=== PATIENT | male | born 1990 | race Caucasian/White ===

== ENCOUNTER 2023-03-09 09:28 | Outpatient (OUT) | payer BC, SELFPAY ==
[2023-03-09 10:21] LABS: Basophils Absolute Auto 0.1 10^3/uL (0.0-0.1); Basophils Percent Auto 0.9 % (0.2-2.0); Eosinophils Absolute Auto 0.3 10^3/uL (0.0-0.7); Eosinophils Percent Auto 5.1 % (0.9-7.0); Hematocrit 45.5 % (42.0-54.0); Hemoglobin 14.6 g/dL (14.0-18.0); Immature Granulocytes Abs Auto 0.02 10^3/uL (0.00-0.03); Immature Granulocytes Pct Auto 0.3 % (0.0-0.5); Lymphocytes Percent Auto 17.5 % (20.5-60.0); Mean Corpuscular HGB Conc 32.1 g/dL (29.9-35.2); Mean Corpuscular Hemoglobin 28.6 pg (25.9-34.0); Mean Platelet Volume 11.5 fL (9.5-13.5); Monocytes Absolute Auto 0.6 10^3/uL (0.3-0.8); Monocytes Percent Auto 9.6 % (1.7-12.0); Neutrophils Absolute Auto 3.9 10^3/uL (1.4-6.5); Neutrophils Percent Auto 66.6 % (43.0-75.0); Platelet Count 156 10^3/uL (150-450); Red Blood Count 5.11 10^6/uL (4.70-6.10); Red Cell Distribution Width 13.8 % (11.0-15.0); White Blood Count 5.8 10^3/uL (4.0-11.0)
[2023-03-09 10:50] LABS: Free T4 1.18 ng/dL (0.76-1.46)
[2023-03-09 12:02] LABS: Alanine Aminotransferase 25 U/L (16-63); Albumin Globulin Ratio 1.2; Albumin Level 4.2 g/dL (3.4-5.0); Alkaline Phosphatase 73 U/L (46-116); Anion Gap 8.6; Aspartate Amino Transferase 19 U/L (15-37); BUN Creatinine Ratio 14.2; Bilirubin Total 0.6 mg/dL (0.2-1.0); Calcium 9.1 mg/dL (8.5-10.1); Carbon Dioxide 27.1 mmol/L (21.0-32.0); Chloride 107 mmol/L (98-107); Chol HDL Ratio 2.6; Cholesterol 118 mg/dL (<=200); Estimated GFR (African America >60 (>=60); Estimated GFR (Non-African Ame >60 (>=60); Globulin 3.4 g/dL; Glucose 107 mg/dL (74-106); HDL Cholesterol 45 mg/dL (40-60); LDL Cholesterol Calculated 61.4 mg/dL; Potassium 3.7 mmol/L (3.5-5.1); Sodium 139 mmol/L (136-145); Thyroid Stimulating Hormone 2.075 uIU/mL (0.358-3.740); Total Protein 7.6 g/dL (6.4-8.2); Triglycerides 58 mg/dL (<=150); VLDL CHOLESTEROL 11.6 mg/dL
== END 2023-03-09 09:29 | disposition home or self-care (01) ==
LOC: LAB 09:35
DX: Z00.00 Encounter for general adult medical examination without abnormal findings (principal); E03.9 Hypothyroidism, unspecified; E10.9 Type 1 diabetes mellitus without complications
CPT/HCPCS: 36415; 80053; 80061; 84439; 84443; 85025

== ENCOUNTER 2024-08-16 07:14 | Outpatient (OUT) | payer BC, SELFPAY ==
[2024-08-16 07:54] LABS: Basophils Absolute Auto 0.1 10^3/uL (0.0-0.1); Basophils Percent Auto 0.8 % (0.2-2.0); Eosinophils Absolute Auto 0.2 10^3/uL (0.0-0.7); Eosinophils Percent Auto 3.2 % (0.9-7.0); Hematocrit 48.2 % (42.0-54.0); Hemoglobin 15.4 g/dL (14.0-18.0); Immature Granulocytes Abs Auto 0.02 10^3/uL (0.00-0.03); Immature Granulocytes Pct Auto 0.3 % (0.0-0.5); Lymphocytes Absolute Auto 1.1 10^3/uL (1.2-3.8); Lymphocytes Percent Auto 16.7 % (20.5-60.0); Mean Corpuscular Hemoglobin 28.9 pg (25.9-34.0); Mean Corpuscular Volume 90.4 fL (80.0-94.0); Mean Platelet Volume 11.6 fL (9.5-13.5); Monocytes Absolute Auto 0.5 10^3/uL (0.3-0.8); Monocytes Percent Auto 7.4 % (1.7-12.0); Neutrophils Absolute Auto 4.8 10^3/uL (1.4-6.5); Neutrophils Percent Auto 71.6 % (43.0-75.0); Platelet Count 168 10^3/uL (150-450); Red Blood Count 5.33 10^6/uL (4.70-6.10); Red Cell Distribution Width 13.7 % (11.0-15.0); White Blood Count 6.6 10^3/uL (4.0-11.0)
[2024-08-16 10:32] LABS: Alanine Aminotransferase 35 U/L (16-63); Albumin Globulin Ratio 1.2; Albumin Level 4.2 g/dL (3.4-5.0); Alkaline Phosphatase 72 U/L (46-116); Anion Gap 13.6; Aspartate Amino Transferase 19 U/L (15-37); BUN Creatinine Ratio 12.1; Bilirubin Total 0.8 mg/dL (0.2-1.0); Calcium 9.1 mg/dL (8.5-10.1); Carbon Dioxide 30.1 mmol/L (21.0-32.0); Chloride 105 mmol/L (98-107); Chol HDL Ratio 2.9; Cholesterol 149 mg/dL (<=200); Estimated GFR (African America >60 (>=60 mL/min/1.73m^2); Estimated GFR (Non-African Ame >60 (>=60 mL/min/1.73m^2); Globulin 3.4 g/dL; Glucose 139 mg/dL (74-106); HDL Cholesterol 52 mg/dL (40-60); Potassium 3.7 mmol/L (3.5-5.1); Sodium 145 mmol/L (136-145); TSH W/ REFLEX FT4 4.211 uIU/mL (0.358-3.740); Total Protein 7.6 g/dL (6.4-8.2); Triglycerides 65 mg/dL (<=150)
[2024-08-16 11:39] LABS: Estimated Average Glucose 140 mg/dL; Glycohemoglobin A1C 6.5 % (4.5-6.2)
== END 2024-08-16 07:15 | disposition home or self-care (01) ==
LOC: LAB 07:22
DX: E10.9 Type 1 diabetes mellitus without complications (principal)
CPT/HCPCS: 36415; 80053; 80061; 83036; 84439; 84443; 85025

== ENCOUNTER 2024-10-05 14:54 | Outpatient (OUT) | payer BC, SELFPAY ==
--- OUTSIDE RECORDS SUMMARY | 2024-10-05 15:03 | XMS_ITS | CCD ---
Author Organization [facility] [place] Care Team Providers Care Housing Development Specialist Name Role Phone Danelle Peck Primary Care Physician Addy Fowler Unavailable Unavailable MIRELES, DIPAKKUMAR P Referring Unavailable MIRELES, DIPAKKUMAR P Primary Care Unavailable MIRELES, DIPAKKUMAR P Referring Unavailable MIRELES, DIPAKKUMAR P Primary Care Unavailable MIRELES, DIPAKKUMAR P Referring Unavailable MIRELES, DIPAKKUMAR P Primary Care Unavailable MIRELES, DIPAKKUMAR P Referring Unavailable MIRELES, DIPAKKUMAR P Primary Care Unavailable MIRELES, DIPAKKUMAR P Referring Unavailable MIRELES, DIPAKKUMAR P Primary Care Unavailable MIRELES, DIPAKKUMAR P Referring Unavailable MIRELES, DIPAKKUMAR P Primary Care Unavailable MIRELES, DIPAKKUMAR P Referring Unavailable MIRELES, DIPAKKUMAR P Primary Care Unavailable MIRELES, DIPAKKUMAR P Primary Care Unavailable Jennifer Williamson Unavailable MISC, DR BURCH Admitting Unavailable MISC, DR BURCH Attending Unavailable MISC, DR BURCH Primary Care Unavailable MISC, DR BURCH Consulting Unavailable Eva Morataya Unavailable Darshana Rojas Unavailable Rafia [facility] jacqueline Mcfarlane Jr, MD, Orestes Sargent Attending Vickey Morataya DO, Eva Mitzy Primary Care U jacqueline Mcfarlane Jr, MD, Orestes Sargent Attending Vickey Mcfarlane Jr, MD, Orestes Sargent Consulting Vickey Morataya DO, [facility] jacqueline Mcfarlane Jr, MD, Orestes Sargent Attending Vickey Marcos MD, Ranjana Tee Attending Unavailable [facility] navclaraable Rafia [facility] Andrea Torres DO Attending Unavailable Allergies Allergy Classification Reported Allergen(s) Allergy Type Date of Onset Reaction(s) Facility (1 source) Codeine; Translations: [codeine sulfate] Drug Allergy [facility] [employer] [facility] (1 source) Penicillins Allergy to substance (disorder) [facility] (1 source) Sulfonamides (Antibiotic) Allergy to substance (disorder) [facility] (13 sources) Codeine; Translations: [codeine] Drug Allergy 04-02-20 24 anaphylaxis [facility] (12 sources) Penicillin G Drug Allergy 04-02-20 rash [facility] (9 sources) Pseudoephedrine Drug Allergy Unknown [facility] Other (1 source) sulfaSALAzine Drug Allergy rash [facility] Other (8 sources) Shellfish Drug allergy Unknown [facility] Other (8 sources) Substance with sulfonamide structure and antibacterial mechanism of action (substance) Drug allergy rash [facility] Other (3 sources) Pseudoephedrine Drug Allergy 04-02-20 Unknown Reaction [facility] (3 sources) Shellfish Allergy to substance 04-02-20 Unknown Reaction [facility] (3 sources) Sulfonamides (Antibiotic) Allergy to substance 04-02-20 rash [facility] (1 source) Penicillin; Translations: [penicillin] Drug Allergy [facility] (1 source) Sulfonamides (Antibiotic); Translations: [sulfa drugs] Propensity to adverse reactions to drug (disorder) [facility] (1 source) iodine containing compounds; Translations: [iodine containing compounds] Propensity to adverse reactions to drug (disorder) [facility] Medications Current Medications Medication Drug Class(es) Dates Sig (Normalized) Sig (Original) azithromycin 250 mg oral tablet (2 sources) Macrolide Antimicrobial Start: 07-25-2023 Azithromycin 250 MG 2 tablet on the first day, then 1 tablet daily for 4 days Orally Once a day for 5 day(s) Jul, Active Start: 03-03-2022 Azithromycin 2 50 MG 2 tablet on the first day, then 1 tablet daily for 4 days Orally Once a day for 5 day(s) Feb, Active cefdinir 300 mg oral capsule (2 sources) Cephalosporin Antibacterial Start: 11-23-2022 take 1 capsule by mouth every twelve hours Cefdinir 300 MG 1 capsule Orally BID for 10 days Nov, Active hydrocortisone 10 mg/ml / neomycin 3.5 mg/ml / polymyxin b [id number] unt/ml otic suspension (1 source) Aminoglycoside Antibacterial, Polymyxin-class Antibacterial, Corticosteroid Start: 03-03-2022 Neomycin-Polym yxin-HC [id number] 3 drops left ear Three times a day for 7 days Feb, Active insulin isophane / insulin, regular, human (1 source) Insulin NovoLIN N Active Insulin Lispro (11 sources) Insulin Analog Start: 04-02-2024 Insulin Lispro Active SUBCUT As Directed April 02, 2024 12:00am FreeTextSig: as directed Injection; Note: Source Status: Taking; Provider: Teri Rodriguez ( ) Insulin Lispro 1 00 UNIT/ML as directed Injection Active levothyroxine sodium 0.125 mg oral tablet (16 sources) l-Thyroxine Start: 04-02-2024 End: 04-02-2024 take 2 tablets by mouth once daily in the morning Levothyroxine Active 250 MCG PO Daily April 02, 2024 3:32pm FreeTextSi tablet in the morning on an empty stomach Orally Once a day; Note: Source Status: Taking; Provider: Teri Rodriguez ( ) take 2 tablets by mo uth once daily in the morning Levothyroxine Sodium 125 MCG 2 tablet in the morning on an empty stomach Orally Once a day Active take 1 tablet by rosales th once daily in the morning Levothyroxine Sodium 125 MCG 1 tablet in the morning on an empty stomach Orally Once a day Active take 1 tablet by rosales th once daily in the morning Levothroid 175 MCG 1 tablet on an empty stomach in the morning Orally Once a day for 30 day(s) Active take 1 tablet by mouth once deyanira y Synthroid 200 mcg oral tablet take 1 tablet (200 mcg) by oral route once daily with a 50 mcg tablet Multivitamin preparation (3 sources) Start: 04-02-2024 take 1 tablet by mouth once daily Multivitamin Active 1 TAB PO Daily April 02, 2024 12:00am naproxen 500 mg oral tablet (2 sources) Nonsteroidal Anti-inflammatory Drug Start: 06-07-2024 take 500 mg by mouth twice daily Naproxen Active 500 MG PO Twice daily June 07, 2024 12:00am ofloxacin 3 mg/ml ophthalmic solution (5 sources) Quinolone Antimicrobial Start: 12-09-2022 Start: 12-09-2022 Ofloxacin 0.3 % 10 drops into affected ear Otic Once a day for 7 days Dec, Not-Taking Completed/Discontinued Medications Medication Drug Class(es) Dates Sig (Normalized) Sig (Original) cephalexin 500 mg oral capsule (2 sources) Cephalosporin Antibacterial Start: 07-07-2023 take 1 capsule by mouth every twelve hours Cephalexin 500 MG 1 capsule Orally twice a day for 10 Jul, Not-Taking ciprofloxacin 2 mg/ml otic solution (5 sources) Quinolone Antimicrobial Start: 12-09-2022 Ciprofloxacin HCl 0.2 % 0.25 mL into affected ear Otic every 12 hrs for 7 days Dec, Not-Taking doxycycline hyclate 100 mg oral tablet (3 sources) Tetracycline-class Drug Start: 02-13-2023 take 1 tablet by mouth every twelve hours Doxycycline Hyclate 100 MG 1 tablet Orally Twice a day for 10 day(s) Feb, Not-Taking fluticasone propionate 0.5 mg/ml topical cream (1 source) Corticosteroid Start: 02-01-2019 fluticasone propionate 0.05 % topical cream 02/01/2019 apply QD for 10 days to affected areas, then weekends only prn Dispense 60 grams Start: 02-01-2019 fluticasone pr opionate 0.05 % topical cream 02/01/2019 apply QD for 10 days to affected areas, then weekends only prn Dispense 60 grams Humalog U-100 Insulin subcut aneous (1 source) Humalog U-100 In sulin subcutaneous per pump Hydrocortison topical ointme nt (3 sources) Hydrocortison to pical ointment Not-Taking Hydrocortison to pical ointment Active ketoconazole 20 mg/ml medicated shampoo (1 source) Azole Antifungal Start: 02-01-2019 ketoconazole 2 % topical shampoo 02/01/2019 apply to the affected area(s), lather, leave in place for 5 minutes, and then rinse off with water by topical route qod Start: 02-01-2019 ketoconazole 2 % topical shampoo 02/01/2019 apply to the affected area(s), lather, leave in place for 5 minutes, and then rinse off with water by topical route qod predniSONE 20 mg oral tablet (2 sources) Start: 07-07-2023 take 1 tablet by mouth every twelve hours prednisone 20 MG 1 tablet Orally BID for 5 Jul, Not-Taking Problems Active Problems Problem Classification Problem Date Documented Date Episodic/Chronic Allergic reactions (1 source) Contact dermatitis and other eczema, unspecified cause Episodic Diabetes mellitus with complications (1 source) Diabetes with renal manifestations, type I [juvenile type], not stated as uncontrolled Chronic Diabetes mellitus without complication (18 sources) Type 1 diabetes mellitus without complications; Translations: [Type 1 diabetes mellitus without complication] Onset: 07-07-2022 Chronic Other ear and sense organ disorders (9 sources) Impacted cerumen; Translations: [Impacted cerumen] Episodic Other ear and sense organ disorders (2 sources) Unspecified acute noninfective otitis externa, left ear Onset: 03-03-2022 Resolved: 03-03-2022 Episodic Other ear and sense organ disorders (3 sources) Dermatitis of external auditory canal; Translations: [Acute eczematoid otitis externa, unspecified ear] 04-02-2024 Episodic Other ear and sense organ disorders (1 source) Acute eczematoid otitis externa, unspecified ear; Translations: [Other acute otitis externa] 04-02-2024 Episodic Other inflammatory condition of skin (3 sources) Pityriasis rosea; Translations: [Pityriasis rosea] Chronic Other inflammatory condition of skin (1 source) Pityriasis rosea Chronic Other inflammatory condition of skin (3 sources) Seborrheic dermatitis, unspecified Onset: 06-30-2018 Episodic Other non-traumatic joint disorders (2 sources) Pain in left knee; Translations: [Left knee pain] 06-07-2024 Episodic Other upper respiratory infections (9 sources) Frontal sinusitis; Translations: [Frontal sinusitis] Chronic Other upper respiratory infections (4 sources) Streptococcal pharyngitis; Translations: [Acute pharyngitis, unspecified] Episodic Otitis media and related conditions (2 sources) Otitis media, unspecified, left ear; Translations: [Other acute nonsuppurative otitis media, left ear] Onset: 03-03-2022 Resolved: 03-03-2022 Episodic Thyroid disorders (15 sources) Unspecified acquired hypothyroidism; Translations: [Hypothyroidism] Chronic Unclassified (5 sources) Well adult; Translations: [Healthy adult] 04-02-2024 Viral infection (3 sources) Viral warts, unspecified Onset: 06-30-2018 Episodic Past or Other Problems Problem Classification Problem Date Documented Da te Episodic/Chronic Other circulatory disease (2 sources) Nevus, non-neoplastic Onset: 06-30-2018 Episodic Unclassified (1 source) Suspected COVID-19 virus infection Z20.822 Results Test Name Value Interpretation Reference Range Facility Diabetic Office/Clinic Noteo n 01-10-2024 Diabetic Office/Clinic Note Chief Complaint Diabetes Mellitus type 1 follow up E10.9 History of Present Illness This is a 33 year old male that presents to the office for a follow up appointment. He was diagnosed in 1990 with Type 1 Diabetes. Since his last appointment patient reports that his blood sugars have continued to run well. He denies any severe or recurrent hypoglycemia. Review of his continuous glucose monitor shows that he is in range 75% of the time with minimal hypoglycemia. His most recent hemoglobin A1c was 6.4. Overall he has felt well. He denies any issues getting his pump or CGM supplies. He has remained active. He denies any coronavirus symptoms including cough, congestion, fever, chills or muscle aches. RN. CDE. Owns a [employer] Hypoglycemic Episodes Yes Hyperglycemic Episodes No Brought Glucometer to Visit: Yes, using Dexcom G6 CGM A1c: 6.4 (01/10/24) 6.7 (07/26/23) 6.2 (01/18/23) 6.0 (07/08/22) 6.6 (12/24/21) 6.2 (08/17/21) 6.5 (05/04/21) 6.9 (03/24/21) 6.6 (01/13/21) 6.9 (08/01/20) 6.6 (07/01/20) 7.1 (03/14/20) 6.9 (10/29/19) Diet: counts carbs Exercise: stays active Dilated Eye Exam: No Diabetic Kidney Disease: No Retinopathy: No Neuropathy: No Weight(kg) 113.5 (01/10/24) 112.6 (07/26/23) 112.0 (01/18/23) 110.2 (07/08/22) 107.0 (03/23/22) 106.7 (12/24/21) 105.5 (09/22/21) 105.7 (06/30/21) 106.1 (03/26/21) 106.4 (01/15/21) 105.6 (09/25/20) 107.4 (07/01/20) 107.6 (03/18/20) 108 (10/30/19) BMI 31.1 (01/10/24) 30.8 (07/26/23) 30.7 (01/18/23) 30.2 (07/08/22)28.7 (03/23/22) 28.6 (12/24/21) 28.9 (09/22/21) 28.9(06/30/21) 29.2 (03/26/21) 29.3 (01/15/21) 29.1 (09/25/20) 29.5 (07/01/20) 29.8 (03/18/20) 29.9 (10/30/19) LDL 52 (07/07/22) 48 (05/04/21) 61 (11/13/20) 76 (03/14/20) GFR >60 (07/07/22) >60 (12/30/21) >60 (05/04/21) >60 (11/13/20) >60 (03/14/20) Current Treatment Regimen: Dexcom G6 + Tandem Control IQ Basal 1.6u/hr Carb Ratio 1:7 ICF 1:60 Active Insulin Time 3:30 Review of Systems General Adult ROS Fatigue: No Appetite change: No Other General: No Weakness: No Weight gain: No Weight Loss: No Cardiovascular Chest pain/pressure: No Edema: No EENMT Vision Changes: No Gastrointestinal Abdominal pain: No Constipation: No Diarrhea: No Heartburn: No Nausea: No Vomiting: No Genitourinary Dysuria: No Frequency: No Genital irritation: No Hematuria: No Polyuria: No Urgency: No Hematologic/Lymphati c Bleeding tendencies: No Bruising: No Musculoskeletal Neurological Headache: No Numbness: No Seizures: No Slurred speech: No Tremor: No Psychiatric Anxiety: No Depression: No Homicidal Ideation: No Poor sleep quality: No Suicidal Ideation: No Respiratory Cough: No Shortness_of_breath: No Skin Physical Exam Vitals & Measurements T: 36.5 ?C (Temporal Artery) HR: 82 (Peripheral) BP: 125/82 SpO2: 99 HT: 191 cm WT: 113.5 kg WT: 113.5 kg (Dosing) BMI: 31.11 No PE Additional Vitals BP Position/Location: Sitting, Left arm Assessment/Plan Type 1 diabetes mellitus Reviewed CGM and pump data with patient. Congratulated him on continuing to do well. Discussed using his correction factor to bolus when high instead of putting carbs in. Advised him to get his pump or CGM back to the office again in a few months for review and further settings adjustment if needed. Basal ? Control IQ 1.6u/hr Carb Ratio 1:7 ICF 1:60 Active Insulin Time 3:30 Total visit time was 25 minutes with >50% of visit spent discussing blood sugar readings, A1c, diet, exercise, medication compliance and follow-up Repeat appointment with myself in 6 months or sooner if needed Call the office with any issues or questions Labs before next visit I spent 15 minutes reviewing past medical records. I dictated this note using [employer] voice recognition software. I attempted to proofread; however, errors may still occur. Please call the [facility] diabetes Center for any clarification. Problem List/Past Medical History Ongoing Diabetes Hypothyroid Internal hemorrhoids AYO (obstructive sleep apnea) Historical COVID-19 (02/2022) Myocarditis Pericarditis Procedure/Surgical History Extraction of wisdom teeth, under local anesthesia (2006) Insertion of PE Tube (Left) (03/25/2020) Colonoscopy Biopsy (11/05/2020) Cardiac catheterization (05/04/2021) Esophagogastroduoden oscopy Biopsy (05/05/2021) Laparoscopic cholecystectomy (08/24/2021) Medications acetaminophen, 650 mg, Oral, q4hr DEXCOM G6 SENSOR, See Instructions DEXCOM G6 TRANSMITTER, See Instructions DME - Supplies, N/A, N/A, TID, 11 refills DME - Supplies, See Instructions, N/A, 11 refills DME - Supplies, See Instructions, N/A, 3 refills DME - Supplies, See Instructions, N/A, 3 refills Gvoke HypoPen Two Pack 1 mg/0.2 mL subcutaneous solution, See Instructions, 2 refills HumaLOG 100 units/mL injectable solution, See Instructions levothyroxine 125 mcg (0.125 mg) oral tablet, See Instructions SKIN-PREP WIPES, See Instr (more content not included)... Normal [facility] Sleep [facility] Office/Clinic Noteon 12-07-2023 Sleep Medicine Office/Clinic Note Chief Complaint Routine CPAP f/u History of Present Illness INTERVAL HISTORY The patient (Cameron Tovar) [facility]. The patient is a 32 Years old Male followed [facility] the [facility] for AYO, for which APAP 6-14 cm H2O was prescribed. At the time of the last visit in December [address] Elmore, the plan was to continue current PAP therapy. Additional Interval History: He occ falls asleep reading as AirFit F20 can't accommodate glasses. Didn't try nasal due to known mouth breathing. 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 He is a diabetic himself, although well controlled. Sleep Habits: The patient goes to bed at 9-10p and gets out of bed at 5a. Sleep onset is not long. There is/are infrequent awakening(s). Intentional naps: denies. Corinne Sleep Scale Sitting and Reading : Slight chance of dozing Watching TV : Slight chance of dozing Sitting Inactive in a Public Place : No chance of dozing Car Passenger For an Hour No Break : No chance of dozing Lying Down in Afternoon When Circumstances Permit : No chance of dozing Sitting and Talking to Someone : No chance of dozing Sitting Quiet After Lunch No Alcohol : No chance of dozing Stopped in Traffic For a Few Minutes : No chance of dozing Total Corinne Sleepiness Scale Score : 2 [1] Review of Systems Cardiovascular and pulmonary systems negative. Physical Exam Vitals & Measurements HR: 81 (Peripheral) RR: 18 BP: 133/72 SpO2: 97 HT: 188 cm WT: 111.2 kg WT: 111.2 kg (Dosing) BMI: 31.46 General appearance: no acute distress. Eyes: no conjunctival erythema, no scleral icterus. Ears, Nose, Mouth and Throat: external ears unremarkable, external nose unremarkable Respiratory: unlabored Mental Status: Cognitive: Alert and oriented x 3. Insight good. Judgment good. Additional Vitals BP Position/Location: Sitting, Left arm Assessment/Plan 1. AYO (obstructive sleep apnea) 2021 HST HEAVEN 10/9 min O2 86%, currently treated with APAP 6-14 cm of water with AirFit F20 from [facility] 2. Diabetes RECOMMENDATION 1. I reviewed his home study and CPAP download with him. I commended his compliance. I encouraged him to continue to use his current machine at his current setting all night every night. He is subjectively improved and objectively compliant. The residual AHI and ESS are reassuring. I renewed his PAP supply order. We discussed potentially refitting to add an air fit F30 hybrid mask to accommodate his glasses and reduce him falling asleep without his machine on. 2. I encouraged regular follow up with her primary care physician and other specialists for preventative and otherwise indicated health screening as well as management of comorbid medical conditions including DM. We specifically discussed the relationship between DM and sleep. I advise maintenance of normal body weight, abstaining from use of tobacco products and support annual flu vaccination. 3. Call if problems/questions arise prior to follow up 4. Follow up in 12 months EDUCATION 1. Driving precautions were reviewed. I advised the patient not to drive if sleepy, and to pullman car clerk if sleepiness occurs while driving. Above plan as discussed with the patient who acknowledged understanding and agreement. Physician Comments Certificate of Medical Necessity PATIENT NAME: Cameron Tovar DATE OF : 1990 PATIENT DATE OF PRESCRIPTION: 12/07/2023 12:53:53 PRESCRIBING PHYSICIAN: Ranjana Marcos MD PRESCRIPTION: PAP Supplies PRIMARY DIAGNOSIS: Obstructive Sleep Apnea G47.33 SECONDARY DIAGNOSIS: _ PRESCRIBED HUMIDITY: Heated FACIAL INTERFACE: Mask per patient preference SUPPLIES REQUIRED: Heated Tubing, Filters, Replacement cushions, Cushion housing, headgear, Water chamber, Chin Strap LENGTH OF NEED FOR PAP AND SUPPLIES: 99 months/lifetime ACTIVATE WIRELESS ACCESS TO DATA: mobintent tag: Angel Cartwright; Care [facility] [place] Tag: [facility]; iCodeConnect tag: [facility]; ResAssist: [facility] Dr Ranjana Marcos MD Electronically signed by 12/07/2023 12:53:53 DME: Teto Salgado fax: [phone] Problem List/Past Medical History Ongoing Diabetes Hypothyroid Internal hemorrhoids AYO (obstructive sleep apnea) Historical COVID-19 (02/2022) Myocarditis Pericarditis Procedure/Surgical History Extraction of wisdom teeth, under local anesthesia (2006) Insertion of PE Tube (Left) (03/25/2020) Colonoscopy Biopsy (11/05/2020) Cardiac catheterization (05/04/2021) Esophagogastroduoden oscopy Biopsy (05/05/2021) Laparoscopic cholecystectomy (08/24/2021) Medications acetaminophen, 650 mg, Oral, q4hr DEXCOM G6 SENSOR, See Instructions DEXCOM G6 TRANSMITTER, See Instructions DME - Supplies, N/A, N/A, TID, 11 refills DME - Supplies, See Instructions, N/A, 11 refills DME - Supplies, See Instructions, N/A, 3 refills DME - Supplies, See Ins (more content not included)... Normal [facility] Quick Strepon 07-25-2023 S. pyogenes Org specific cx Ql (Throat) Positive [employer] Other Quick Strep [employer] Other COVID + FLU Quick Testingon 07-07-2023 SARS-CoV-2 (COVID-19) RNA MARIAMA+probe Ql (Unsp spec) Negative [employer] Other COVID + FLU Quick Testing Negative [employer] Other Quick Strepon 07-07-2023 S. pyogenes Org specific cx Ql (Throat) Positive [employer] Other Quick Strep [employer] Other CBC AUTO DIFFon 07-07-2022 BASO # 0.1 103/ul Normal 0.0-0.1 [facility] Comment on above: Performed By: #### C BC #### [facility] [address] [address] [address] Huber Mitchell Basophils/100 WBC (Bld) 0.7 % Normal 0.2-2.0 [facility] Comment on above: Performed By: #### C BC #### [facility] [address] [place] [address] Dr. Huber Mitchell EO # 0.3 103/ul Normal 0.0-0.7 [facility] Comment on above: Performed By: #### C BC #### [facility] [address] [place] [address] Dr. Huber Mitchell Eosinophils/100 WBC (Bld) 3.7 % Normal 0.9-7.0 [facility] Comment on above: Performed By: #### C BC #### [facility] [address] [place] [address] Dr. Huber Mitchell Erythrocyte distribution width (RBC) [Ratio] 13.4 % Normal 11.0-15.0 [facility] Comment on above: Performed By: #### C BC #### [facility] [address] [place] [address] Dr. Huber Mitchell Hematocrit (Bld) [Volume fraction] 47.1 % Normal 42.0-54.0 [facility] Comment on above: Performed By: #### C BC #### [facility] [address] [place] [address] Dr. Huber Mitchell Hemoglobin (Bld) [Mass/Vol] 15.2 g/dL Normal 14.0-18.0 [facility] Comment on above: Performed By: #### C BC #### [facility] [address] [place] [address] Dr. Huber Mitchell IG # 0.03 10e3/ul Normal 0.00-0.03 [facility] Comment on above: Performed By: #### C BC #### [facility] [address] [place] [address] Dr. Huber Mitchell IG % 0.4 % Normal 0.0-0.5 [facility] Comment on above: Performed By: #### C BC #### [facility] [address] [place] [address] Dr. Huber Mitchell LYMPH # 1.2 103/ul Normal 1.2-3.8 [facility] Comment on above: Performed By: #### C BC #### [facility] [address] [place] [address] Dr. Huber Mitchell Lymphocytes/100 WBC (Bld) 17.7 % Critically low 20.5-60.0 [facility] Comment on above: Performed By: #### C BC #### [facility] [address] [place] [address] Dr. Huber Mitchell MANUAL DIFF REQ NO Normal [facility] Comment on above: Performed By: #### C BC #### [facility] [address] [place] [address] Dr. Hbuer Mitchell MCH (RBC) [Entitic mass] 28.8 pg Normal 25.9-34.0 [facility] Comment on above: Performed By: #### C BC #### [facility] [address] [place] [address] Dr. Huber Mitchell MCHC (RBC) [Mass/Vol] 32.3 g/dL Normal 29.9-35.2 [facility] Comment on above: Performed By: #### C BC #### [facility] [address] [place] [address] Dr. Huber Mitchell MCV (RBC) [Entitic vol] 89.4 fL Normal 80.0-94.0 [facility] Comment on above: Performed By: #### C BC #### [facility] [address] [place] [address] Dr. Huber Mitchell MONO # 0.6 103/ul Normal 0.3-0.8 [facility] Comment on above: Performed By: #### C BC #### [facility] [address] [place] [address] Dr. Huber Mitchell Monocytes/100 WBC (Bld) 8.6 % Normal 1.7-12.0 [facility] Comment on above: Performed By: #### C BC #### [facility] [address] [place] [address] Dr. Huber Mitchell NEUT # 4.8 103/ul Normal 1.4-6.5 [facility] Comment on above: Performed By: #### C BC #### [facility] [address] [place] [address] Dr. Huber Mitchell Neutrophils/100 WBC (Bld) 68.9 % Normal 43.0-75.0 [facility] Comment on above: Performed By: #### C BC #### [facility] [address] [place] [address] Dr. Huber Mitchell Platelet mean volume (Bld) [Entitic vol] 11.4 fL Normal 9.5-13.5 [facility] Comment on above: Performed By: #### C BC #### [facility] [address] [place] [address] Dr. Huber Mitchell PLT 201 103/ul Normal 150-450 [facility] Comment on above: Performed By: #### C BC #### [facility] [address] [place] [address] Dr. Huber Mitchell RBC 5.27 106/ul Normal 4.70-6.10 [facility] Comment on above: Performed By: #### C BC #### [facility] [address] [place] [address] Dr. Huber Mitchell WBC 7.0 103/ul Normal 4.0-11.0 [facility] Comment on above: Performed By: #### C BC #### [facility] [address] [place] [address] Dr. Huber Mitchell GLYCOHEMOGLOBIN A1Con 2021 ADA RECOMMENDATION SEE BELOW Normal [facility] Comment on above: Result Comment: ADA RECOMMENDED LIMIT 4.0 - 6.0 ADA THERAPEUTIC TARGET < 7.0 ACTION SUGGESTED > 7.0 Performed By: #### A 1C #### [facility] [address] [place] [address] Dr. Huber Mitchell Glucose [Mass/Vol] 126 mg/dL Normal [facility] Comment on above: Performed By: #### A 1C #### [facility] [address] [place] [address] Dr. Huber Mitchell HbA1c (Bld) [Mass fraction] 6.0 % Normal 4.5-6.2 [facility] Comment on above: Performed By: #### A 1C #### [facility] [address] [address] [address] Huber Mitchell LIPID PROFILEon 07-07-2022 CHOL-HDL RATIO NORM SEE BELOW Normal [facility] Comment on above: Result Comment: 3.3 - 4.4 LOW RISK 4.4 - 7.1 AVERAGE RISK 7.1 - 11.0 MODERATE RISK >11.0 HIGH RISK Performed By: #### L IPID, TSH #### [facility] [address] [address] [address] Huber Mitchell Cholesterol [Mass/Vol] 121 mg/dL Normal <=200 [facility] Comment on above: Performed By: #### L IPID, TSH #### [facility] [address] [address] [address] Huber Mitchell Cholesterol in HDL [Mass/Vol] 41 mg/dL Normal 40-60 [facility] Comment on above: Performed By: #### L IPID, TSH #### [facility] [address] [address] [address] Huber Mitchell Cholesterol in LDL [Mass/Vol] 52.2 mg/dL Normal [facility] Comment on above: Performed By: #### L IPID, TSH #### [facility] [address] [address] [address] Huber Mitchell Cholesterol.total/Ch olesterol in HDL [Mass ratio] 3.0 {ratio} Normal [facility] Comment on above: Performed By: #### L IPID, TSH #### [facility] [address] [address] [address] Huber Mitchell HDL NORMAL > or = 60 mg/dl - LOW CARDIOVASCULAR RISK <40 mg/dl - HIGH CARDIOVASCULAR RISK Normal [facility] Comment on above: Performed By: #### L IPID, TSH #### [facility] [address] [address] [address] Huber Mitchell LDL CALC NORMAL SEE BELOW Normal [facility] Comment on above: Result Comment: <100 mg/dl OPTIMAL 100 - 129 mg/dl NEAR OR ABOVE OPTIMAL 130 - 159 mg/dl BORDERLINE HIGH 160 - 189 mg/dl HIGH >190 mg/dl VERY HIGH Performed By: #### L IPID, TSH #### [facility] [address] [address] [address] Huber Mitchell Triglyceride [Mass/Vol] 139 mg/dL Normal <=150 [facility] Comment on above: Performed By: #### L IPID, TSH #### [facility] [address] [address] [address] Huber Mitchell VLDL CALC 27.8 mg/dL Normal [facility] Comment on above: Performed By: #### L IPID, TSH #### [facility] [address] [address] [address] Huber Mitchell MICROALB CREAT RATIO RANDOMo n 07-07-2022 mALB <1.3 Normal <=30.0 [facility] Comment on above: Performed By: #### M CRR #### [facility] [address] [address] [address] Huber VASQUEZ CR RATIO 16.6 mg/g Normal 0.0-29.9 [facility] Comment on above: Performed By: #### M CRR #### [facility] [address] [address] [address] Huber Mitchell MALB CR RATIO RANGE SEE BELOW Normal [facility] Comment on above: Result Comment: NO M ICROALBUMINURIA 0-29 MG/G CLINICAL MICROALBUMINURIA 30-300 MG/G MACROALBUMINURIA >300 MG/G Performed By: #### M CRR #### [facility] [address] [address] [address] Huber Mitchell URINE CREAT 78.28 mg/dL Normal 20.00-300.00 [facility] Comment on above: Performed By: #### M CRR #### [facility] [address] [address] [address] Huber Mitchell PROF 14(COMP METB)on 022 Albumin [Mass/Vol] 4.5 g/dL Normal 3.4-5.0 [facility] Comment on above: Performed By: #### C MP #### [facility] [address] [place] [address] Dr. Huber Mitchell Albumin/Globulin [Mass ratio] 1.2 {ratio} Normal [facility] Comment on above: Performed By: #### C MP #### [facility] [address] [place] [address] Dr. Huber Mitchell ALP [Catalytic activity/Vol] 72 U/L Normal 46-116 [facility] Comment on above: Performed By: #### C MP #### [facility] [address] [place] [address] Dr. Huber Mitchell ALT [Catalytic activity/Vol] 30 U/L Normal 16-63 [facility] Comment on above: Performed By: #### C MP #### [facility] [address] [place] [address] Dr. Huber Mitchell Anion gap [Moles/Vol] 12.1 mmol/L Normal [facility] Comment on above: Performed By: #### C MP #### [facility] [address] [place] [address] Dr. Huber Mitchell AST [Catalytic activity/Vol] 18 U/L Normal 15-37 [facility] Comment on above: Performed By: #### C MP #### [facility] [address] [place] [address] Dr. Huber Mitchell Bilirubin [Mass/Vol] 0.5 mg/dL Normal 0.2-1.0 [facility] Comment on above: Performed By: #### C MP #### [facility] [address] [place] [address] Dr. Huber Mitchell Calcium [Mass/Vol] 9.2 mg/dL Normal 8.5-10.1 [facility] Comment on above: Performed By: #### C MP #### [facility] [address] [place] [address] Dr. Huber Mitchell Chloride [Moles/Vol] 101 mmol/L Normal 98-107 [facility] Comment on above: Performed By: #### C MP #### [facility] [address] [address] [address] Huber Mitchell CO2 [Moles/Vol] 30.5 mmol/L Normal 21.0-32.0 [facility] Comment on above: Performed By: #### C MP #### [facility] [address] [address] [address] Huber Mitchell Creatinine [Mass/Vol] 1.12 mg/dL Normal 0.70-1.30 [facility] Comment on above: Performed By: #### C MP #### [facility] [address] [address] [address] Huber Mitchell EGFR-AF SUDANESE >60 Normal >=60 [facility] Comment on above: Performed By: #### C MP #### [facility] [address] [place] [address] Dr. Huber Mitchell EGFR-NON AF SUDANESE >60 Normal >=60 [facility] Comment on above: Performed By: #### C MP #### [facility] [address] [place] [address] Dr. Huber Mitchell Globulin (S) [Mass/Vol] 3.6 g/dL Normal [facility] Comment on above: Performed By: #### C MP #### [facility] [address] [place] [address] Dr. Huber Mitchell Glucose [Mass/Vol] 129 mg/dL Critically high 74-106 [facility] Comment on above: Performed By: #### C MP #### [facility] [address] [place] [address] Dr. Huber Mitchell Potassium [Moles/Vol] 3.6 mmol/L Normal 3.5-5.1 [facility] Comment on above: Performed By: #### C MP #### [facility] [address] [place] [address] Dr. Huber Mitchell Protein [Mass/Vol] 8.1 g/dL Normal 6.4-8.2 [facility] Comment on above: Performed By: #### C MP #### [facility] [address] [place], [place] [id number] Dr. Huber Mitchell Sodium [Moles/Vol] 140 mmol/L Normal 136-145 [facility] Comment on above: Performed By: #### C MP #### [facility] [address] [address] [address] Huber Mitchell Urea nitrogen [Mass/Vol] 19.0 mg/dL Critically high 7.0-18.0 [facility] Comment on above: Performed By: #### C MP #### [facility] [address] [address] [address] Huber Mitchell Urea nitrogen/Creatinine [Mass ratio] 17.0 mg/mg Normal [facility] Comment on above: Performed By: #### C MP #### [facility] [address] [address] [address] Huber Mitchell TSHon 07-07-2022 TSH 2.154 uIU/mL Normal 0.358-3.[address] [facility] Comment on above: Performed By: #### L IPID, TSH #### [facility] [address] [place] [address] Dr. Huber Mitchell Cult,Bloodon 04-14-2019 Cult,Blood Specimen Description .BLOOD Special Requests NOT REPORTED Culture NO GROWTH 5 DAYS Report Status FINAL 04/14/2019 [facility] Comment on above: Performed By: #### B C #### [facility] [address] [address] [employer] Developer: Randal Hernandez MD Cult,Urineon 04-10-2019 Cult,Urine Specimen Description .CLEAN CATCH URINE Special Requests NOT REPORTED Culture NO GROWTH Report Status FINAL 04/10/2019 [facility] Comment on above: Performed By: #### U RC #### [facility] [address] [place] [address] [employer] Developer: Edgardo Pham MD [facility] [address] [address] [employer] Developer: Randal Hernandez MD CBC with Diffon 04-09-2019 Abs. Basophil 0.05 k/uL Normal 0.00-0.20 [facility] Comment on above: Performed By: #### C P, CDP #### [facility] [address] [place], [place] [address] [employer] Developer: Randal Hernandez MD Abs.Imm.Granulocyte 0.17 k/uL Normal 0.00-0.30 [facility] Comment on above: Performed By: #### C P, CDP #### [facility] [address] [place], [place] [address] [employer] Developer: Randal Hernandez MD Abs.Neutrophil (Seg) 14.51 k/uL High 1.50-8.10 [facility] Comment on above: Performed By: #### C P, CDP #### [address] [place] [address] [employer]: Randal Hernandez MD Basophils/100 WBC (Bld) 0 % Normal 0-2 [facility] Comment on above: Performed By: #### C P, CDP #### [address] [place] [place] [address] [employer] Developer: Randal Hernandez MD Eosinophils (Bld) [#/Vol] 0.26 10*3/uL Normal 0.00-0.44 [facility] Comment on above: Performed By: #### C P, CDP #### [address] [place] [place] [address] [employer]: Randal Hernandez MD Eosinophils/100 WBC (Bld) 2 % Normal 1-4 [facility] Comment on above: Performed By: #### C P, CDP #### [address] [place] [address] [employer]: Randal Hernandez MD Erythrocyte distribution width (RBC) [Ratio] 13.3 % Normal 11.8-14.4 [facility] Comment on above: Performed By: #### C P, CDP #### [address] [place] [address] [employer]: Randal Hernandez MD Hematocrit (Bld) [Volume fraction] 45.1 % Normal 40.7-50.3 [facility] Comment on above: Performed By: #### C P, CDP #### [facility] [address] [place] [facility] [employer] Developer: Randal Hernandez MD Hemoglobin (Bld) [Mass/Vol] 14.3 g/dL Normal 13.0-17.0 [facility] Comment on above: Performed By: #### C P, CDP #### [address] [place] [address] [employer] Developer: Randal Hernandez MD Immature granulocytes (Bld) [#/Vol] 1 % High 0 [facility] Comment on above: Performed By: #### C P, CDP #### [address] [place], [facility] [employer] Developer: Randal Hernandez MD Lymphocytes (Bld) [#/Vol] 0.87 10*3/uL Low 1.10-3.70 [facility] Comment on above: Performed By: #### C P, CDP #### [address] [place], [facility] [employer] Developer: Randal Hernandez MD Lymphocytes/100 WBC (Bld) 5 % Low 24-43 [facility] Comment on above: Performed By: #### C P, CDP #### [facility] [address] [place] [facility] [employer] Developer: Randal Hernandez MD MCH (RBC) [Entitic mass] 28.7 pg Normal 25.2-33.5 [facility] Comment on above: Performed By: #### C P, CDP #### [facility] [address] [place] [facility] [employer] Developer: Randal Hernandez MD MCHC (RBC) [Mass/Vol] 31.7 g/dL Normal 28.4-34.8 [facility] Comment on above: Performed By: #### C P, CDP #### [facility] [address] [place] [address] [employer] Developer: Randal Hernandez MD MCV (RBC) [Entitic vol] 90.4 fL Normal 82.6-102.9 [facility] Comment on above: Performed By: #### C P, CDP #### [facility] [address] [place] [address] [employer] Developer: Randal Hernandez MD Monocytes (Bld) [#/Vol] 0.56 10*3/uL Normal 0.10-1.20 [facility] Comment on above: Performed By: #### C P, CDP #### [facility] [address] [place], [facility] [employer] Developer: Randal Hernandez MD Monocytes/100 WBC (Bld) 3 % Normal 3-12 [facility] Comment on above: Performed By: #### C P, CDP #### [facility] [address] [place], [place] [address] [employer] Developer: Randal Hernandez MD Neutrophil (Seg) 89 % High 36-65 [facility] Comment on above: Performed By: #### C P, CDP #### [facility] [address] [place], [facility]83 [employer] Developer: Randal Hernandez MD NRBC Automated 0.0 per 100 WBC Normal 0.0 [facility] Comment on above: Performed By: #### C P, CDP #### [facility] [address] [place] [address] [employer] Developer: Randal Hernandez MD Platelet mean volume (Bld) [Entitic vol] 11.8 fL Normal 8.1-13.5 [facility] Comment on above: Performed By: #### C P, CDP #### [facility] [address] [place], [place] [address] [employer] Developer: Randal Hernandez MD Platelets (Bld) [#/Vol] 150 10*3/uL Normal 138-453 [facility] Comment on above: Performed By: #### C P, CDP #### [facility] [address] [place], [place] [id number] [employer] Developer: Randal Hernandez MD RBC (Bld) [#/Vol] 4.99 10*6/uL Normal 4.21-5.77 [facility] Comment on above: Performed By: #### C P, CDP #### [facility] [address] [place], [place] [address] [employer]: Randal Hernandez MD WBC (Bld) [#/Vol] 16.4 10*3/uL High 3.5-11.3 [facility] Comment on above: Performed By: #### C P, CDP #### [facility] [address] [place] [address] [employer] Developer: Randal Hernandez MD Auto Diff Performed NOT REPORTED Normal [facility] Comment on above: Performed By: #### C P, CDP #### [facility] [address] [place], [place] [id number] [employer] Developer: Randal Hernandez MD Platelets (Bld) [#/Vol] NOT REPORTED Normal [facility] Comment on above: Performed By: #### C P, CDP #### [facility] [address] [place] [address] [employer] Developer: Randal Hernandez MD RBC morphology finding Nom (Bld) NOT REPORTED Normal [facility] Comment on above: Performed By: #### C P, CDP #### [facility] [address] [place], [place] [address] [employer] Developer: Randal Hernandez MD WBC Morphology NOT REPORTED Normal [facility] Comment on above: Performed By: #### C P, CDP #### [facility] [address] [place] [address] [employer] Developer: Randal Hernandez MD Comp Metabolic Profon 2018 (cont.) Normal [facility] Comment on above: Result Comment: Aver age GFR for 30-39 years old: 107 mL/min/1.73sq m Chronic Kidney Disease: <60 mL/min/1.73sq m Kidney failure: <15 mL/min/1.73sq m eGFR calculated using average adult body mass. Additional eGFR calculator available at: http://www.[employer].Ubicom/multiple_crcl_2011.htm Performed By: #### C P, CDP #### [facility] [address] [place] [address] [employer] Developer: Randal Hernandez MD Albumin [Mass/Vol] 4.2 g/dL Normal 3.5-5.2 [facility] Comment on above: Performed By: #### C P, CDP #### [facility] [address] [place], [place] [id number] [employer]: Randal Hernandez MD Albumin/Globulin [Mass ratio] 1.2 {ratio} Normal 1.0-2.5 [facility] Comment on above: Performed By: #### C P, CDP #### [facility] [address] [place], [place] [address] [employer] Developer: Randal Hernandez MD Alkaline Phos 72 U/L Normal 40-129 [facility] Comment on above: Performed By: #### C P, CDP #### [facility] [address] [place] [address] [employer] Developer: Randal Hernandez MD ALT [Catalytic activity/Vol] 15 U/L Normal 5-41 [facility] Comment on above: Performed By: #### C P, CDP #### [facility] [address] [place] [address] [employer] Developer: Randal Hernandez MD Anion gap [Moles/Vol] 9 mmol/L Normal 9-17 [facility] Comment on above: Performed By: #### C P, CDP #### [facility] [address] [place], [place] [address] [employer] Developer: Randal Hernandez MD AST [Catalytic activity/Vol] 16 U/L Normal <40 [facility] Comment on above: Performed By: #### C P, CDP #### [facility] [address] [place], [place] [address] [employer] Developer: Randal Hernandez MD Bilirubin Ql (U) 1.49 mg/dL High 0.3-1.2 [facility] Comment on above: Performed By: #### C P, CDP #### [facility] [address] [place], [place] [address] [employer] Developer: Randal Hernandez MD BUN/CRE Ratio 14 Normal 9-20 [facility] Comment on above: Performed By: #### C P, CDP #### [facility] [address] [place], [place] [address] [employer] Developer: Randal Hernandez MD Calcium [Mass/Vol] 9.5 mg/dL Normal 8.6-10.4 [facility] Comment on above: Performed By: #### C P, CDP #### [facility] [address] [place], [place] [address] [employer] Developer: Randal Hernandez MD Chloride [Moles/Vol] 102 mmol/L Normal 98-107 [facility] Comment on above: Performed By: #### C P, CDP #### [facility] [address] [place], [place] [address] [employer] Developer: Randal Hernandez MD CO2 [Moles/Vol] 26 mmol/L Normal 20-31 [facility] Comment on above: Performed By: #### C P, CDP #### [facility] [address] [place], [place] [address] [employer] Developer: Randal Hernandez MD Creatinine [Mass/Vol] 1.04 mg/dL Normal 0.70-1.20 [facility] Comment on above: Performed By: #### C P, CDP #### [facility] [address] [place], [place] [address] [employer] Developer: Randal Hernandez MD GFR, Amer >60 Normal >60 [facility] Comment on above: Performed By: #### C P, CDP #### [facility] [address] [place], [place] [address] [employer] Developer: Randal Hernandez MD GFR,non Amer >60 Normal >60 [facility] Comment on above: Performed By: #### C P, CDP #### [facility] [address] [place], [place] [address] [employer] Developer: Randal Hernandez MD Glucose [Mass/Vol] 263 mg/dL High 70-99 [facility] Comment on above: Performed By: #### C P, CDP #### [facility] [address] [place], [place] [address] [employer] Developer: Randal Hernandez MD Potassium [Moles/Vol] 4.2 mmol/L Normal 3.7-5.3 [facility] Comment on above: Performed By: #### C P, CDP #### [facility] [address] [place], [place] [id number] [employer] Developer: Randal Hernandez MD Protein [Mass/Vol] 7.6 g/dL Normal 6.4-8.3 [facility] Comment on above: Performed By: #### C P, CDP #### [facility] [address] [place], [place] [id number] [employer] Developer: Randal Hernandez MD Sodium [Moles/Vol] 137 mmol/L Normal 135-144 [facility] Comment on above: Performed By: #### C P, CDP #### [facility] [address] [place], [place] [id number] [employer] Developer: Randal Hernandez MD Staging: Normal [facility] Comment on above: Result Comment: Stag e 1: Some kidney damage normal GFR Stage 2: Mild kidney damage GFR 60-89 Stage 3: Moderate kidney damage GFR 30-59 Stage 4: Severe kidney damage GFR 15-29 Stage 5: Severe kidney damage GFR <15 ESRD - chronic treatment by dialysis or transplant Performed By: #### C P, CDP #### [facility] [address] [place] [id number] [employer] Developer: Randal Hernandez MD Urea nitrogen [Mass/Vol] 15 mg/dL Normal 6-20 [facility] Comment on above: Performed By: #### C P, CDP #### [facility] [address] [place] [address] [employer] Developer: Randal Hernandez MD [facility] 02-26-2019 Albumin mass conc 4.6 g/dL Normal 3.5-5.0 [facility] Comment on above: Performed By: #### 8 00, 1000, 1005, 4500, 5280, 4520 #### [facility] Unless Otherwise Noted [address] [address] / COLA #4724/CLIA # [id number] ALP enzyme act/vol 77.0 U/L Normal 38.0-126.0 [facility] Comment on above: Performed By: #### 8 00, 1000, 1005, 4500, 8610, 4520 #### [facility] Unless Otherwise Noted [address] [place] [address] / COLA #4724/CLIA # [id number] ALT enzyme act/vol 19.0 U/L Normal 13.0-69.0 [facility] Comment on above: Performed By: #### 8 00, 1000, 1005, 4500, 4510, 4520 #### [facility] Unless Otherwise Noted [address] [address] / COLA #4724/CLIA # [id number] Anion gap molar conc 10.0 mmol/L Normal 10.0-15.0 [facility] [place] Comment on above: Performed By: #### 8 00, 1000, 1005, 4500, 4510, 4520 #### [facility] Unless Otherwise Noted [address] [address] / COLA #4724/CLIA # [id number] AST enzyme act/vol 18.0 U/L Normal 15.0-46.0 [facility] Comment on above: Performed By: #### 8 00, 1000, 1005, 4500, 4510, 4520 #### [facility] Unless Otherwise Noted [address] [address] / COLA #4724/CLIA # [id number] Bilirubin Ql (U) 0.70 mg/dL Normal 0.20-1.30 [facility] Comment on above: Performed By: #### 8 00, 1000, 1005, 4500, 4510, 4520 #### [facility] Unless Otherwise Noted [address] [address] / COLA #4724/CLIA # [id number] BUN/Cre Ratio 17.0 Ratio Normal 7.0-27.[address] [facility] Comment on above: Performed By: #### 8 00, 1000, 1005, 4500, 4510, 4520 #### [facility] Unless Otherwise Noted [address] [address] [place] [address] / COLA #4724/CLIA # [id number] Calcium mass conc 9.6 mg/dL Normal 8.4-10.2 [facility] Comment on above: Performed By: #### 8 00, 1000, 1005, 4500, 4510, 4520 #### [facility] [place] Unless Otherwise Noted [address] [address] / COLA #4724/CLIA # [id number] Chloride molar conc 104.0 mmol/L Normal 98.0-107.0 [facility] Comment on above: Performed By: #### 8 00, 1000, 1005, 4500, 4510, 4520 #### [facility] [place] Unless Otherwise Noted [address] [address] / COLA #4724/CLIA # [id number] CO2 molar conc 27.0 mmol/L Normal 22.0-30.0 [facility] [place] Comment on above: Performed By: #### 8 00, 1000, 1005, 4500, 4510, 4520 #### [facility] Unless Otherwise Noted [address] [address] / COLA #4724/CLIA # [id number] Creatinine mass conc 1.0 mg/dL Normal 0.7-1.3 [facility] Comment on above: Performed By: #### 8 00, 1000, 1005, 4500, 4510, 4520 #### [facility] Unless Otherwise Noted [address] [address] / COLA #4724/CLIA # [id number] GFR/1.73 sq M predicted among blacks MDRD vol rate/area (S/P/Bld) 112.8 ml/m1.73 Normal [facility] Comment on above: Performed By: #### 8 00, 1000, 1005, 4500, 4510, 4520 #### [facility] Unless Otherwise Noted [address] [address] / COLA #4724/CLIA # [id number] GFR/1.73 sq M predicted among non-blacks MDRD vol rate/area (S/P/Bld) 93.3 ml/m1.73 Normal Endocrine d [facility] Comment on above: Performed By: #### 8 00, 1000, 1005, 4500, 4510, 4520 #### [facility] [place] Unless Otherwise Noted [address] [address] / COLA #4724/CLIA # [id number] GFR/1.73 sq M predicted among non-blacks MDRD vol rate/area (S/P/Bld) 162.2 ml/m1.73 Normal [facility] Comment on above: Performed By: #### 8 00, 1000, 1005, 4500, 4510, 4520 #### [facility] Unless Otherwise Noted [address] [address] / COLA #4724/CLIA # [id number] Glucose mass conc 250.0 mg/dL High 74.0-106.0 Endocr [facility] Comment on above: Performed By: #### 8 00, 1000, 1005, 4500, 4510, 4520 #### [facility] Unless Otherwise Noted [address] [address] / COLA #4724/CLIA # [id number] Potassium molar conc 4.3 mmol/L Normal 3.5-5.1 [facility] Comment on above: Performed By: #### 8 00, 1000, 1005, 4500, 4510, 4520 #### [facility] Unless Otherwise Noted [address] [address] / COLA #4724/CLIA # [id number] Protein mass conc 7.4 g/dL Normal 6.3-8.2 [facility] Comment on above: Performed By: #### 8 00, 1000, 1005, 4500, 4510, 4520 #### [facility] [place] Unless Otherwise Noted [address] [place] [address] / COLA #4724/CLIA # [id number] Sodium molar conc 141.0 mmol/L Normal 137.0-145.0 [facility] Comment on above: Performed By: #### 8 00, 1000, 1005, 4500, 4510, 4520 #### [facility] Unless Otherwise Noted [address] [place] [address] / COLA #4724/CLIA # [id number] Urea nitrogen mass conc 17.0 mg/dL Normal 9.0-20.0 [facility] [place] Comment on above: Performed By: #### 8 00, 1000, 1005, 4500, 4510, 4520 #### [facility] Unless Otherwise Noted [address] [place] [address] / COLA #4724/CLIA # [id number] FT3on 02-26-2019 FT3 3.96 pg/mL Normal 2.32-6.09 [facility] Comment on above: Performed By: #### 8 00, 1000, 1005, 4500, 4510, 4520 #### [facility] Unless Otherwise Noted [address] [address] / COLA #4724/CLIA # [id number] FT4on 02-26-2019 T4 free mass conc 1.32 ng/dL [facility] 0[facility]79[facility] Comment on above: Performed By: #### 8 00, 1000, 1005, 4500, 4510, 4520 #### [facility] Unless Otherwise Noted [address] [address] / COLA #4724/CLIA # [id number] [facility] 02-26-2019 Cholesterol in HDL mass conc 50.0 mg/dL Normal 40.0-60.0 [facility] Comment on above: Performed By: #### 8 00, 1000, 1005, 4500, 4510, 4520 #### [facility] Unless Otherwise Noted [address] [address] / COLA #4724/CLIA # [id number] Cholesterol in LDL mass conc 57.2 mg/dL Normal 0.0-100.0 [facility] Comment on above: Performed By: #### 8 00, 1000, 1005, 4500, 4510, 4520 #### [facility] Unless Otherwise Noted [address] [address] / COLA #4724/CLIA # [id number] Cholesterol in VLDL mass conc 15.8 mg/dL Normal [facility] Comment on above: Performed By: #### 8 00, 1000, 1005, 4500, 4510, 4520 #### [facility] Unless Otherwise Noted [address] [address] / COLA #4724/CLIA # [id number] Cholesterol mass conc 123.0 mg/dL Normal 0.0-199.0 [facility] Comment on above: Performed By: #### 8 00, 1000, 1005, 4500, 4510, 4520 #### [facility] Unless Otherwise Noted [address] [address] / COLA #4724/CLIA # [id number] Cholesterol.total/Ch olesterol in HDL mass ratio 2.5 {ratio} Normal [facility] Comment on above: Performed By: #### 8 00, 1000, 1005, 4500, 4510, 4520 #### [facility] Unless Otherwise Noted [address] [address] / COLA #4724/CLIA # [id number] Triglyceride mass conc 79.0 mg/dL Normal 0.0-150.0 [facility] Comment on above: Performed By: #### 8 00, 1000, 1005, 4500, 4510, 4520 #### [facility] Unless Otherwise Noted [address] [address] / COLA #4724/CLIA # [id number] NEW MICROALBUMINon 9 Creatinine mass conc (U) 92.0 mg/dL Normal [facility] Comment on above: Order Comment: THE M ICROALBUMIN IS < 6.0 THEREFORE THE MICROALBUMIN/CREATININE RATIO IS UNDETECTABLE. Performed By: #### 8 00, 1000, 1005, 4500, 4510, 4520 #### [facility] Unless Otherwise Noted [address] [address] / COLA #4724/CLIA # [id number] Microalbumin <6.0 Normal 0.0-30.0 Endocrine [facility] Comment on above: Order Comment: THE M ICROALBUMIN IS < 6.0 THEREFORE THE MICROALBUMIN/CREATININE RATIO IS UNDETECTABLE. Performed By: #### 8 00, 1000, 1005, 4500, 4510, 4520 #### [facility] [place] Unless Otherwise Noted [address] [place] [address] / COLA #4724/CLIA # [id number] Urine A/C Ratio -99.0 mg/g Low 0.0-30.0 [facility] Comment on above: Order Comment: THE M ICROALBUMIN IS < 6.0 THEREFORE THE MICROALBUMIN/CREATININE RATIO IS UNDETECTABLE. Performed By: #### 8 00, 1000, 1005, 4500, 4510, 4520 #### [facility] Unless Otherwise Noted [address] [place] [address] / COLA #4724/CLIA # [id number] TSHon 02-26-2019 Thyrotropin Qn 1.44 uIU/ml Normal 0.47-4.68 [facility] Comment on above: Performed By: #### 8 00, 1000, 1005, 4500, 4510, 4520 #### [facility] [place] Unless Otherwise Noted [address] [place] [address] / COLA #4724/CLIA # [id number] XR HAND RIGHT (MIN 3 VIEWS)o n 10-29-2018 XR HAND RIGHT (MIN 3 VIEWS) EXAMINATION: 3 XRAY VIEWS OF THE RIGHT HAND 10/29/2018 1:28 pm COMPARISON: None. HISTORY: ORDERING SYSTEM PROVIDED HISTORY: pain TECHNOLOGIST PROVIDED HISTORY: pain FINDINGS: There is a subtle lucent line through the base of the 4th metacarpal that may represent a nondisplaced fracture and correlation with point tenderness is needed. The joint spaces are maintained. There is mild soft tissue swelling. IMPRESSION: Subtle lucent line through the base of the 4th metacarpal that may represent a nondisplaced fracture and correlation with point tenderness is needed. Interpreted by: Manuel Tubbs MD Signed by: Manuel Tubbs MD 10/29/18 Final result Normal [facility] Vital Signs Date Time Vital Sign Value Performing Clinician Facility 06-07-2024 07:29-0400 Body height 190.[address] [facility] 06-07-2024 07:29-0400 Body mass index (BMI) [Ratio] 31.2 kg/m2 [facility] 06-07-2024 07:29-0400 Body temperature 98 [degF] [facility] 06-07-2024 07:29-0400 Body weight 113.[address] [facility] 06-07-2024 07:29-0400 Diastolic blood pressure 76 mm[Hg] [facility] 06-07-2024 07:29-0400 Heart rate 76 /min [facility] 06-07-2024 07:29-0400 SaO2% (BldA) [Mass fraction] 98 % [facility] 06-07-2024 07:29-0400 Systolic blood pressure 116 mm[Hg] [facility] 04-02-2024 15:21-0400 Body height 190.[address] [facility] 04-02-2024 15:21-0400 Body mass index (BMI) [Ratio] 31.5 kg/m2 [facility] 04-02-2024 15:21-0400 Body weight 114.[address] [facility] 04-02-2024 15:21-0400 Diastolic blood pressure 76 mm[Hg] [facility] 04-02-2024 15:21-0400 Heart rate 70 /min [facility] 04-02-2024 15:21-0400 SaO2% (BldA) [Mass fraction] 97 % [facility] 04-02-2024 15:21-0400 Systolic blood pressure 130 mm[Hg] [facility] 11-20-2023 18:00-0500 Body height 190.5 cm Jennifer Williamson Other [facility] [employer] Other 07-25-2023 18:00-0500 Body mass index (BMI) [Ratio] 30.49 kg/m2 Jennifer Williamson Other [facility] [facility] Other 07-25-2023 18:00-0500 Body temperature 98.9 [degF] Jennifer Williamson Other [facility] [facility] Other 07-25-2023 18:00-0500 Body weight 110.68 kg Jennifer Williamson Other [facility] [employer] Other 07-25-2023 18:00-0500 Diastolic blood pressure 68 mm[Hg] Jennifer Mccainmond Other [employer] Other 07-25-2023 18:00-0500 Respiratory rate 18 /min Jennifer Williamson Other [employer] Other 07-25-2023 18:00-0500 SaO2% (BldA) [Mass fraction] 97 % Jennifer Williamson Other [facility] [employer] Other 07-25-2023 18:00-0500 Systolic blood pressure 107 mm[Hg] Jennifer Mccainmond Other [facility] [facility] Other 07-07-2023 11:55-0400 Body height 190.5 cm Darshana Rojas Other [facility] [facility] Other 07-07-2023 11:55-0400 Body mass index (BMI) [Ratio] 30.87 kg/m2 Darshana Rojas Other [facility] [facility] Other 07-07-2023 11:55-0400 Body temperature 98.3 [degF] Darshana Rojas Other [facility] [facility] Other 07-07-2023 11:55-0400 Body weight 112.04 kg Darshana Rojas Other [facility] [facility] Other 07-07-2023 11:55-0400 Diastolic blood pressure 65 mm[Hg] Darshana Rojas Other [facility] Other 07-07-2023 11:55-0400 Respiratory rate 18 /min Darshana Rojas Other [facility] [facility] Other 07-07-2023 11:55-0400 SaO2% (BldA) [Mass fraction] 98 % Darshana Rojas Other [facility] [employer] [facility] Other 07-07-2023 11:55-0400 Systolic blood pressure 118 mm[Hg] Darshana Rojas Other [facility] [employer] [facility] Other 02-25-2023 10:00-0400 Body height 190.5 cm Eva Schwerer Other [facility] [facility] Other 02-25-2023 10:00-0400 Body mass index (BMI) [Ratio] 30.16 kg/m2 Eva Schwerer Other [facility] [facility] Other 02-25-2023 10:00-0400 Body weight 109.45 kg Eva Schwerer Other [facility] [facility] Other 02-25-2023 10:00-0400 Diastolic blood pressure 78 mm[Hg] Eva Schwerer Other [facility] Other 02-25-2023 10:00-0400 Respiratory rate 18 /min Eva Schwerer Other [facility] [employer] Other 02-25-2023 10:00-0400 SaO2% (BldA) [Mass fraction] 98 % Eva Schwerer Other [facility] [employer] Other 02-25-2023 10:00-0400 Systolic blood pressure 110 mm[Hg] Eva Schwerer Other [employer] Other 12-09-2022 10:45-0400 Body height 190.5 cm Eva Schwerer Other [employer] Other 12-09-2022 10:45-0400 Body mass index (BMI) [Ratio] 31.33 kg/m2 Eva Schwerer Other [employer] Other 12-09-2022 10:45-0400 Body temperature 98.1 [degF] Eva Schwerer Other [facility] Other 12-09-2022 10:45-0400 Body weight 113.72 kg Eva Schwerer Other [facility] Other 12-09-2022 10:45-0400 Diastolic blood pressure 80 mm[Hg] Eva Schwerer Other [employer] Other 12-09-2022 10:45-0400 SaO2% (BldA) [Mass fraction] 99 % Eva Schwerer Other [employer] Other 12-09-2022 10:45-0400 Systolic blood pressure 128 mm[Hg] Eva Schwerer Other [facility] [employer] Other 11-23-2022 11:50-0400 Body height 190.5 cm Darshana Rojas Other [employer] Other 11-23-2022 11:50-0400 Body mass index (BMI) [Ratio] 30.62 kg/m2 Darshana Rojas Other [facility] Other 11-23-2022 11:50-0400 Body temperature 96.9 [degF] Darshana Rojas Other [facility] [facility] Other 11-23-2022 11:50-0400 Body weight 111.13 kg Darshana Rojas Other [facility] [facility] Other 11-23-2022 11:50-0400 Respiratory rate 18 /min Darshana Rojas Other [facility] [employer] Other 11-23-2022 11:50-0400 SaO2% (BldA) [Mass fraction] 97 % Darshana Rojas Other [facility] [employer] Other 11-18-2022 14:15-0400 Body height 190.5 cm Evaisai Thompsonerer Other [facility] [facility] Other 11-18-2022 14:15-0400 Body mass index (BMI) [Ratio] 30.56 kg/m2 Eva Schwerer Other [facility] [facility] Other 11-18-2022 14:15-0400 Body temperature 97.4 [degF] Eva Schwerer Other [facility] Other 11-18-2022 14:15-0400 Body weight 110.91 kg Eva Morataya Other [employer] Other 11-18-2022 14:15-0400 Diastolic blood pressure 78 mm[Hg] Eva Schwerer Other [employer] Other 11-18-2022 14:15-0400 SaO2% (BldA) [Mass fraction] 97 % Eva Thompsonerer Other [facility] [facility] Other 11-18-2022 14:15-0400 Systolic blood pressure 118 mm[Hg] Eva Schwerer Other [facility] [facility] Other 03-03-2022 10:30-0400 Body height 190.5 cm Jennifer Mccainmond Other [employer] [facility] Other 03-03-2022 10:30-0400 Body mass index (BMI) [Ratio] 29.99 kg/m2 Jennifer Mccainmond Other [facility] Other 03-03-2022 10:30-0400 Body temperature 97.5 [degF] Jennifer Mccainmond Other [facility] [facility] Other 03-03-2022 10:30-0400 Body weight 108.86 kg Jennifer Mccainmond Other [facility] [facility] Other 03-03-2022 10:30-0400 Diastolic blood pressure 65 mm[Hg] Jennifer Mccainmond Other [facility] [facility] Other 03-03-2022 10:30-0400 Respiratory rate 18 /min Jennifre Teri Other [facility] [facility] Other 03-03-2022 10:30-0400 SaO2% (BldA) [Mass fraction] 99 % Jennifer Williamson Other [facility] [facility] Other 03-03-2022 10:30-0400 Systolic blood pressure 123 mm[Hg] Jennifer Williamson Other [employer] Other 02-26-2019 14:01-0400 Body weight Measured 106.2 Kg [facility] Comment on above: Performed By: #### 800, 1000, 1005, 4500 , 4510, 4520 #### [facility] [place] Unless Otherwise Noted [address] [place] [address] / COLA #4724/DANITZA # [id number] Encounters Encounter Date Encounter Type Care Provider Facility Start: 02-13-2025 ambulatory Eva Morataya Facility[facility] Start: 12-06-2024 ambulatory Evaisai Morataya Facility:[facility] Start: 08-20-2024 End: 08-20-2024 ambulatory Eva Morataya DO Facility:[facility] Start: 07-02-2024 End: 07-03-2024 ambulatory [facility] Work Phone: Start: 07-02-2024 End: 07-03-2024 Patient encounter procedure [facility] Work Phone: Start: 06-07-2024 End: 06-07-2024 ambulatory [facility] Work Phone: Start: 06-07-2024 End: 06-07-2024 Patient encounter procedure [facility] [place] Work Phone: Start: 04-02-2024 End: 04-02-2024 ambulatory [facility] Work Phone: Start: 04-02-2024 End: 04-02-2024 Patient encounter procedure [facility] Work Phone: Start: 01-10-2024 End: 01-10-2024 ambulatory Eva Morataya DO Facility[facility] Start: 12-07-2023 End: 12-07-2023 ambulatory Ranjana Marcos MD Facility:[facility] Start: 07-25-2023 End: 07-25-2023 ambulatory Jennifer Williamson Other [employer] Other Start: 07-25-2023 Office outpatient vi sit 15 minutes Jenniferleora Williamson [facility] Start: 07-07-2023 End: 07-07-2023 ambulatory Darshana Rojas Other [employer] Other Start: 07-07-2023 Office outpatient vi sit 25 minutes Darshana Rojas [facility] Start: 02-25-2023 End: 02-25-2023 ambulatory Eva Jayerer Other [employer] Other Start: 02-25-2023 Encounter for genera l adult medical examination without abnormal findings Eva Franciscor [facility] [place] Start: 02-25-2023 Periodic preventive med est patient 18-39 yrs Evajonathon Franciscor [facility] [place] Start: 12-09-2022 End: 12-09-2022 ambulatory Eva Schwerer Other [facility] [employer] Other Start: 12-09-2022 Office outpatient vi sit 15 minutes Eva Jayerer [facility] [place] Start: 12-09-2022 Telephone encounter Eva Franciscor [facility] Start: 11-23-2022 End: 11-23-2022 ambulatory Darshana Rojas Other [employer] Other Start: 11-23-2022 Office outpatient vi sit 25 minutes Darshana Rojas [facility] [place] Start: 11-18-2022 End: 11-18-2022 ambulatory Eva Thompsonerer Other [employer] Other Start: 11-18-2022 Office outpatient ne w 45 minutes Eva Schwerer [facility] Start: 11-04-2022 End: 11-04-2022 ambulatory Eva Schwerer Other [employer] Other Start: 11-04-2022 Telephone encounter Eva Thompsonerer [facility] Start: 07-07-2022 End: 07-08-[address] BURCH [facility] Facility: Start: 03-03-2022 End: 03-03-2022 ambulatory Jennifer Williamson Other [employer] Other Start: 03-03-2022 Office outpatient ne w 20 minutes Jennifer Williamson [facility] [place] Start: 04-09-2019 End: 04-10-2019 [facility] Start: 02-01-2019 Office outpatient vi sit 10 minutes Danelle Peck Other [facility] Office Start: 10-29-2018 End: 10-29-2018 Emergency department [facility] Start: 10-11-2018 End: 10-12-2018 Patient encounter procedure [facility] Start: 10-09-2018 End: 10-10-2018 Patient encounter procedure [facility] Start: 10-04-2018 End: 10-05-2018 Patient encounter procedure [facility]UM[facility] Start: 10-02-2018 End: 10-03-2018 [facility] Start: 09-27-2018 End: 09-28-2018 Patient encounter procedure DIPLETHAKFELIBERTO P [facility] Start: 09-21-2018 End: 09-22-2018 Patient encounter procedure CELINA Helm [facility] Start: 08-04-2018 Office outpatient vi sit 15 minutes Danelle Peck Other [facility] Office Start: 06-30-2018 Office outpatient ne w 30 minutes Addy Jiménez Other [facility] Office Procedures Date Procedure Procedure Detail Performing Clinician Start: 04-09-2019 Culture bacterial bl ood aerobic w/id isolates CELINA MIRELES Start: 04-09-2019 Blood count complete auto&auto difrntl wbc CELINA MIRELES Start: 04-09-2019 Comprehensive metabolic panel CELINA MIRELES Start: 04-09-2019 Culture bacterial qu anttative colony count urine CELINA MIRELES Start: 02-01-2019 Doc meds verified w/pt or re Danelle Cisco Start: 10-29-2018 SPLINT APPLICATION SHREYAS MIRELES Start: 10-29-2018 Radex hand minimum 3 views CELINA MIRELES Start: 08-04-2018 Doc meds verified w/pt or re Danelle Ernst Start: 06-30-2018 Doc meds verified w/pt or re Danelle Peck Plan of Treatment Date Care Activity Detail Author Comprehensive metabo lic 2000 panel - Serum or Plasma [facility] enter [facility] Payers Date Payer Category Payer Unknown 2018 Unknown [id number] 1988 Unknown [id number] 1988 Unknown [id number] 1988 Unknown [id number] 1988 Unknown [id number] 1988 Unknown [id number] 1988 Unknown [id number] 1988 Unknown [id number] 1988 Unknown [id number] .173 1988 Unknown [id number] .593 1988 Unknown [id number] [id number] .196 1988 Unknown [id number] [id number] .196 1988 Unknown [id number] 2.16.840.1.634884.3.579.2 .196 1988 Unknown [id number] 2.16.840.1.498556.3.579.2 .196 1988 Unknown [id number] .196 1959 Unknown [id number] Private Health Insurance [facility] [employer] [id number] Social History Date Type Detail Facility Unknown if ever smoked [employer] Other Sex Assigned At Sex Assigned At Bir [employer] Other Start: 07-25-2023 Tobacco smoking status NHIS Never smoked tobacco (finding) [facility] Start: 1990 Sex Assigned At Male [facility] Clinical Notes 03-03-2022 to 07-25-2023 Note Date & Type Note Facility 07-25-2023 Evaluation note Encounter Date Diagnosis Assessment Notes Jul, Sore throat (ICD-10 - J02.9) Jul, Strep throat (ICD-10 - J02.0) Drink plenty fluids, get plenty of rest. Take the azithromycin as prescribed until gone. Take Tylenol or Motrin as needed for aches pains or fevers. Continue home medications as prescribed. Follow-up with your family physician if no improvement in 2 to 3 days [employer] Other 11-02-2023 Evaluation note* Encounter Date Diagnosis Assessment Notes Treatment Notes Treatment Clinical Notes Jul, Suspected COVID-19 virus infection (ICD-10 - Z20.822) Jul, Strep pharyngitis (ICD-10 - J02.0) Advised patient that strep test was positive. COVID/Influenza A/B test negative. Reviewed allergies and recent antibiotic use. Instructed patient to take antibiotic and steroid as prescribed, with food and plenty of water, complete entire course even if feeling better. Advised patient that they are contagious for 24 hours after starting antibiotic. Discussed infection control and good hand hygiene. New tooth brush in 2-3 days after starting antibiotic. Supportive care as directed. Push fluids and rest, Tylenol or Motrin as needed for fever or discomfort, warm salt water gargles, throat lozenges as needed. Patients symptoms should improve in the next 48 hours, eval by PCP or UC if symptoms have not improved with treatment. Discussed in depth warning symptoms that require immediate eval. Patient verbalizes understanding and is agreeable to treatment plan Jul, Sore throat (ICD-10 - J02.9) [employer] Other 06-23-2023 Evaluation note* Encounter Date Diagnosis Assessment Notes Treatment Notes Treatment Clinical Notes Feb, Well adult exam (ICD-10 - Z00.00) will update labs. he will get at outside facility and will call once done to ensure we get results. will then fill out wellness form. Feb, Hypothyroidism, unspecified type (ICD-10 - E03.9) Feb, Type 1 diabetes mellitus without complication (ICD-10 - E10.9) Feb, Pityriasis rosea (ICD-10 - L42) will call if worsening or new symptoms. was just on doxy but does not appear to be drug reaction and has tnot improved since off the doxy. [employer] Other 04-06-2023 Evaluation note* Encounter Date Diagnosis Assessment Notes Treatment Notes Treatment Clinical Notes Dec, Acute otitis externa of left ear, unspecified type (ICD-10 - H60.502) He has a complex hx of left ear issues. Has hx of tubes as an adult. Reports a eustation tube polyp in the past that was removed. Had been seeing ENT who has since left the [facility]. He also moved here and would like to establish locally. Recently seen at and diagnosed with otitis media-give cefidinir x 10 days. During that time developed some drainage out of ear but not typical signs of perforation. Cannot visualize TM completely to rule out perforation given ear canal swelling. Picked antibiotic choice appropriately for that. Will do drops given canal is erytmatous and swollen. He reports decreased earing but does report tinnitus and partial hearing, given the extensive effusion i think this is what it is realted to. He will continue claritin and flonase. [employer] Other 03-21-2023 Evaluation note* Encounter Date Diagnosis Assessment Notes Treatment Notes Treatment Clinical Notes Nov, Acute otitis media with effusion of left ear (ICD-10 - H65.192) Advised patient to take antibiotics as directed, complete entire course even if feeling better. Use OTC Flonase and Claritin/Zyrtec as directed. Supportive care, Tylenol/Motrin as needed for aches/fever, warm compress to affected ear, push fluids and rest. Follow up with PCP or ENT if symptoms do not improve in the next 2-3 days. Immediate eval for severe ear pain, severe headache, neck pain/stiffness, pain, erythema, or redness behind the ear, fever, N/V, hearing loss, fever, or any other new or concerning symptoms. Patient verbalizes understanding and is agreeable to treatment plan [employer] Other 03-16-2023 Evaluation note* Encounter Date Diagnosis Assessment Notes Treatment Notes Treatment Clinical Notes Nov, Type 1 diabetes mellitus without complication (ICD-10 - E10.9) follows with provider in [place]. Controlled Nov, Hypothyroidism, unspecified type (ICD-10 - E03.9) last labs 07/2022-controlle d. [employer] Other 06-29-2022 Evaluation note* Encounter Date Diagnosis Assessment Notes Treatment Notes Treatment Clinical Notes Feb, Acute otitis externa of left ear, unspecified type (ICD-10 - H60.502) Drink plenty fluids, get plenty of rest. Continue your home medications as prescribed. Use eardrops as prescribed. Take the Zithromax as prescribed until gone. Take Tylenol or Motrin for aches pains or fevers. Follow-up with your family physician if no improvement in 2 to 3 days. Feb, Left otitis media, unspecified otitis media type (ICD-10 - H66.92) [facility] [employer] Other Evaluation noteNo [facility] [employer] Other Evaluation note* Diagnosis Onset Date Resolution Status Well adult [facility] Work Phone: Evaluation note* Diagnosis Onset Date Resolution Status Dermatitis of ear canal acut e Hypothyroidism acute Type 1 diabetes acute Well adult [facility] Work Phone: Evaluation note* Diagnosis Onset Date Resolution Status Left knee pain [facility] Work Phone: [facility] general Narrative - Reported* Type Description Date Medical History type I diabetes Medical History asthma Medical History Hypothyroidism Surgical History wisdom teeth Hospitalization History see above [employer] Other [facility] general Narrative - Reported* Type Description Date Medical History type I diabetes Medical History asthma Medical History Hypothyroidism Surgical History wisdom teeth Surgical History cholecystectomy Hospitalization History see above [employer] Other Summary Purpose Family History No Family History Records FoundNo Family History Records FoundNo Family History Records FoundNo Family History Records Found Advance Directives No Advanced Directives Records Found Advance Directive Response Recorded Date/ Time Advance Directives No April 02 3:17pm Reason for Referral Reason * FU 12/15 CALL ronic ear issues, middle ear effusion, hx of tubes Dr. Joseph Diagnosis 1 Acute otitis externa of left ear, unspecified type (H60.502) Referral Organization [facility] Jacobo Cueto Referring Provider First Name Eva Referring Provider Last Name Rafia Referring Provider Specialty Family [facility] Referred Organization [facility] Referred Provider Tyson Joseph Referred Address ,[place],[address] Referred Provider Specialty Otolaryngolo gy Referral Priority Routine General Notes Jeannette Rios 02/2023 11:34:08 AM >referral received and sent p2p successful per log Chief Complaint and Reason for Visit Chief Complaint 1 yearly Reason for Visit Well adult Chief Complaint 1 yearly L Knee Pain Reason for Visit Dermatitis of ear ca nal Hypothyroidism Type 1 diabetes Well adult Chief Complaint L Knee Pain sore throat , fever, exposed to sprep Reason for Visit Left knee pain Additional Source Comments (unrecognized sect ion and content) No Status Records FoundNo Status Records FoundNo Status Records FoundNo Status Records Found INFORMATION SOURCE (unrecogn ized section and content) DATE CREATED AUTHOR 02/26/2019 [facility] DATE CREATED AUTHOR AUTHOR'S ORGANIZ ATION 04/14/2019 [facility] DATE CREATED AUTHOR AUTHOR'S ORGANIZ ATION 07/12/2022 [facility] DATE CREATED AUTHOR AUTHOR'S ORGANIZ ATION 10/04/2024 [facility] REASON FOR VISIT (unrecogniz ed section and content) LEFT EAR DRAINAGE, PAINFULHe alow Request NPEst CareEAR INFECTIONhaving trouble hearing out of left earear dropsNo InformationFEVER, CONGESTION AND SORE THROATSORE THROAT, NECK PAIN, MUSCLE PAIN Care Teams (unrecognized sec tion and content) Team Status: Active Member Role Status Dates Eva Morataya DO Primary Care Provider Active Team Status: Inactive Member Role Status Dates Eva Morataya DO Primary Care Pro vider, Attending Provider Active Start: April 02, 2024 End: April 02, 2024 Team Status: Inactive Member Role Status Dates Eva Morataya DO Primary Care Pro waggoner, Attending Provider Active Start: June 07, 2024 End: June 07, 2024 Team Status: Inactive Member Role Status Dates Eva Morataya DO Primary Care Provider Active Start: July 02, 2024 End: July 03, 2024 Mary Becerra APRN Attending Provider Active S tart: July 02, 2024 End: July 03, 2024 Goals (unrecognized section and content) Goals may be documented in a n alternate section FOR RECORDS PERTAINING TO PATIENTS WHO ARE OR HAVE BEEN ENROLLED IN A CHEMICAL DEPENDENCY/SUBSTANCEABUSE PROGRAM, SOME INFORMATION MAY BE OMITTED. This clinical summary was aggregated from multiple sources. Caution should be exercised in using it in the provision of clinical care. This summary normalizes information from multiple sources, and as a consequence, information in this document may materially change the coding, format and clinical context of patient data. In addition, data may be omitted in some cases. CLINICAL DECISIONS SHOULD BE BASED ON THE PRIMARY CLINICAL RECORDS. [facility]. provides no warranty or guarantee of the accuracy or completeness of information in this document.
[2024-10-05 15:43] LABS: TSH W/ REFLEX FT4 6.016 uIU/mL (0.358-3.740)
[2024-10-05 16:08] LABS: Free T4 0.91 ng/dL (0.76-1.46)
== END 2024-10-05 14:55 | disposition home or self-care (01) ==
LOC: LAB 14:56
DX: E10.9 Type 1 diabetes mellitus without complications (principal)
CPT/HCPCS: 36415; 84439; 84443